=== PATIENT | female | born 1980 | race Caucasian/White ===

== ENCOUNTER 2016-11-04 08:47 | Outpatient (CLI) | payer BC, SELFPAY | END 2016-11-04 08:48 | LOC: HPCALD 08:47 | PROVIDERS: ATTEND Physician Assistant | DX: R31.9 Hematuria, unspecified (principal) | CPT/HCPCS: 87086 ==

== ENCOUNTER 2017-06-15 10:48 | Outpatient (CLI) | payer BC | END 2017-06-15 10:49 | disposition home or self-care (01) | LOC: HPCALD 10:48 | PROVIDERS: ATTEND Physician Assistant | DX: R30.0 Dysuria (principal) | CPT/HCPCS: 87077; 87086; 87186 ==

== ENCOUNTER 2019-07-16 09:37 | Emergency (ER) | payer OTHER ==
[2019-07-16 09:57] LABS: Bilirubin Negative (Negative); Blood, Urine Large (Negative); Clarity Slightly Cloudy (Clear); Glucose, Urine (Dipstick) Negative (Negative); Leukocyte Negative (Negative); Nitrite Negative (Negative); Pregnancy Test - Urine (BHCG) Negative (Negative); Pregu Control Background? CLEAR/WHITE (CLR/WHITE); Pregu Control Bar Appear? YES (CONTROL BAR); Protein, Urine (Dipstick) Trace mg/dL (Neg-Trace); Urobilinogen 0.2 mg/dL (Less than 2)
[2019-07-16 10:06] LABS: #Eosinphils 0.4 thou/uL (0.0-0.7); #Lymphocytes 1.7 thou/uL (1.20-3.40); #Monocytes 0.3 thou/uL (0.11-0.59); #Neutrophils 13.7 thou/uL (1.40-6.50); %Basophils 0.3 % (0.0-1.0); %Eosinophils 2.2 % (0.0-10.0); %Lymphocytes 10.3 % (21.0-51.0); %Neutrophils 85.2 % (42.0-75.0); Hemoglobin 13.8 g/dL (12.0-16.0); Mean Corpuscular HGB CONC 31.4 g/dL (32.0-36.0); Mean Corpuscular Hemoglobin 22.6 pg (27.0-31.0); Mean Corpuscular Volume 71.9 fL (78.0-98.0); Mean Platelet Volume 6.8 fL (7.4-10.4); Platelet Count 326 thou/uL (130-400); RBC Distribution Width 13.7 % (11.5-14.5); Red Blood Cell (RBC) Count 6.12 mill/uL (4.20-5.40); White Blood Cell (WBC) Count 16.1 thou/uL (4.8-10.8)
[2019-07-16] MEDS ORDERED: Ketorolac Tromethamine 30 MG/ML VIAL ONE (10:08)
[2019-07-16] MEDS ORDERED: Ondansetron PF 4 MG/2 ML Vial ONE (10:08)
[2019-07-16 10:14] LABS: Bacteria/HPF 1+ HPF (None Seen); RBC/HPF 0-3 HPF (0-3); Squamous Epithelial 0-3 HPF (0-3); WBC/HPF 0-3 HPF (0-3)
[2019-07-16 10:15] LABS: Mucous/LPF 1+ LPF (<2+)
[2019-07-16 10:22] LABS: ALT (SGPT) 14 U/L (8-55); AST (SGOT) 11 U/L (5-34); Albumin 3.9 g/dL (3.5-5.0); Alkaline Phosphatase 95 U/L (40-110); Anion Gap 16 mmol/L (10-20); BUN (Urea Nitrogen) 9 mg/dL (7.0-18.7); Bilirubin, Total 0.5 mg/dL (0.2-1.2); Calc. Creatinine Clearance 0 mL/min (70-130); Calcium 9.2 mg/dL (7.8-10.44); Carbon Dioxide 22 mmol/L (22-29); Chloride 105 mmol/L (98-107); Estimated GFR-MDRD 68; Globulin 3.8 g/dL (2.4-3.5); Glucose 126 mg/dL (70-105); Lipase 5 U/L (8-78); Potassium 4.2 mmol/L (3.5-5.1); Protein, Total 7.7 g/dL (6.0-8.3); Sodium 139 mmol/L (136-145)
[2019-07-16 10:26] LABS: MDiff Complete? YES; Microcytosis MODERATE=15-30 cells (100X) (0-5/hpf); Platelet Morphology Comment Appears Adequate
--- NOTE | 2019-07-16 18:04 | CT ---
CT ABDOMEN AND PELVIS WITH CONTRAST: 07/16/2019 HISTORY/TECHNIQUE: A spiral CT of the abdomen and pelvis was performed for evaluation of left-sided abdominal pain. Axia l slices were acquired after giving IV contrast, followed by coronal and sagittal reconstructions. FINDINGS: The lung bases are clear. There are no effusions. The liver, spleen, pancreas, gallbladder, adrenal g lands, kidneys and abdominal aorta all appear normal and show no acute changes. The two major findings on this study are very prominent thickening of the mid small bowel and an impr essive amount of free fluid in the abdomen and pelvis. An area of segmental thickening is seen in the jejunum with the terminal ileum appearing normal, as does the colon. Pockets of fluid are seen aroun d the liver, in the upper abdomen and quite a bit deep in the pelvis, around the pouch of Constantine and surrounding areas. There is some inflammatory change in the mesentery, adjacent to some of the thick ened bowel loops. No free air is detected. An incidental findings is a tiny fat filled umbilical francoise ia of no concern. CT of the pelvis is remarkable for the free fluid present, in a moderate amount. No pelvic mass is se en. Degenerative changes are seen at the lumbosacral junction, including a degenerated disk. IMPRESSION: Prominently thickened mid small bowel, which normally would suggest enteritis. The confounding item i n this picture is the amount of free fluid present is much greater than one normally sees in enteriti s. One might postulate perforation but there is no free air to back that up. Inflammatory bowel disea se is in the differential but seems less likely, given a segment of mid small bowel and no obvious in volvement of the terminal ileum or colon. Bowel ischemia or vasculitis seems less likely in this age group and the superior mesenteric artery and its various branches seems to fill quite well. Never-the -less this would be part of the differential diagnosis. COMMENT: I feel the patient needs very close followup and perhaps referral because of the discontinuity betwee n the findings of small bowel thickening and the amount of free fluid present. Consulted with [facility] radiologists on this case. Discussed the case with Dr. Méndez, including recomm endations, at 1129 hours on 07/16/2019. CODE CR POS: HOME
== END 2019-07-16 12:22 | disposition home or self-care (01) ==
LOC: BURERS 09:37
DX: K52.9 Noninfective gastroenteritis and colitis, unspecified (principal); I10 Essential (primary) hypertension; F41.9 Anxiety disorder, unspecified; F32.9 Major depressive disorder, single episode, unspecified; R11.0 Nausea; Z79.899 Other long term (current) drug therapy
CPT/HCPCS: 36415; 74177; 80053; 81003; 81015; 81025; 83690; 85025; 96361; 96374; 96375; J1885; J2405

== ENCOUNTER 2022-09-01 11:19 | Outpatient (CLI) | payer BC | END 2022-09-01 11:20 | disposition home or self-care (01) | LOC: BURRAD 11:19 | PROVIDERS: ATTEND Nurse Practitioner Family | DX: M25.572 Pain in left ankle and joints of left foot (principal); M79.672 Pain in left foot ==

== ENCOUNTER 2025-07-10 07:46 | Emergency (ER) | payer BC, OTHER | END 2025-07-10 08:45 | disposition home or self-care (01) | LOC: BURERS 07:46 | DX: S16.1XXA Strain of muscle, fascia and tendon at neck level, initial encounter (principal); R29.898 Other symptoms and signs involving the musculoskeletal system; V89.2XXA Person injured in unspecified motor-vehicle accident, traffic, initial encounter; W22.10XA Striking against or struck by unspecified automobile airbag, initial encounter | CPT/HCPCS: 70450; 71045; 72125; G0390 ==